=== PATIENT | male | born 1945 | race Caucasian/White ===

== ENCOUNTER 2018-08-17 14:16 | Emergency (ER) | payer OTHER ==
[~2018-08-17] VITALS: Ht 175.3 cm; Wt 96.2 kg
[2018-08-17 14:24] VITALS: Ht 175.3 cm; Wt 96.2 kg
[2018-08-17 16:38] VITALS: BP 139/58
== END 2018-08-17 18:15 | disposition home or self-care (01) ==
LOC: ED 14:16
DX: M25.562 Pain in left knee (principal); M25.561 Pain in right knee; S16.1XXA Strain of muscle, fascia and tendon at neck level, initial encounter; I10 Essential (primary) hypertension; E11.9 Type 2 diabetes mellitus without complications; V79.9XXA Bus occupant (driver) (passenger) injured in unspecified traffic accident, initial encounter; Y93.89 Activity, other specified; Y92.89 Other specified places as the place of occurrence of the external cause; Y99.8 Other external cause status